=== PATIENT | male | born 1970 | race Caucasian/White ===

== ENCOUNTER 2017-07-26 03:45 | Emergency (ER) | payer SELFPAY ==
[~2017-07-26] VITALS: Ht 188 cm; Wt 95.0 kg
[2017-07-26] MEDS ORDERED: CEFTRIAXONE PMX 1GM/50ML 50 ML IVPB ONE (04:00)
[2017-07-26] MEDS ORDERED: SULFAMETH./TRIMETHOPRIM DS 800MG/160MG TABLET PO ONE (04:00)
[2017-07-26] MEDS ORDERED: SODIUM CHLORIDE FLUSH 10ML SYR IVF ONE (04:00)
[2017-07-26] MEDS ORDERED: PLEASE ENTER ALLERGIES MC SCH ×2 (04:30)
[2017-07-26] MEDS ORDERED: SULFAMETH./TRIMETHOPRIM DS 800MG/160MG TABLET ONE (04:37)
[2017-07-26] MEDS ORDERED: CEFTRIAXONE PMX 1GM/50ML 50 ML ONE (04:37)
[2017-07-26 04:50] LABS: BLOOD UREA NITROGEN 8 mg/dL (7-18)
[2017-07-26 04:52] LABS: HEMATOCRIT 53.8 % (39.2-51.8); HEMOGLOBIN 18.2 g/dL (13.7-18.0); WHITE BLOOD COUNT 7.7 x10^3/uL (3.4-10)
[2017-07-26 06:21] VITALS: BP 112/77
== END 2017-07-26 06:13 | disposition home or self-care (01) ==
LOC: ED 06:00
DX: L03.115 Cellulitis of right lower limb (principal); L03.116 Cellulitis of left lower limb
CPT/HCPCS: 36415; 80048; 82040; 85025; 96365; 99284; J0696

== ENCOUNTER 2017-10-13 17:41 | Emergency (ER) | payer MEDICAID, OTHER ==
[~2017-10-13] VITALS: Ht 188 cm; Wt 87.5 kg
[2017-10-13 17:59] VITALS: BP 94/62
== END 2017-10-13 19:23 | disposition home or self-care (01) ==
LOC: ED 19:17
DX: S60.221A Contusion of right hand, initial encounter (principal); Y04.0XXA Assault by unarmed brawl or fight, initial encounter; Y93.89 Activity, other specified; Y99.8 Other external cause status; Y92.89 Other specified places as the place of occurrence of the external cause
CPT/HCPCS: 99284

== ENCOUNTER 2018-01-16 18:22 | Emergency (ER) | payer MEDICAID ==
[~2018-01-16] VITALS: Ht 188 cm; Wt 87.0 kg
[2018-01-16 18:26] VITALS: BP 100/64
== END 2018-01-16 18:43 | disposition home or self-care (01) ==
LOC: ED 18:37
DX: L03.114 Cellulitis of left upper limb (principal); L03.116 Cellulitis of left lower limb; F10.129 Alcohol abuse with intoxication, unspecified; L40.9 Psoriasis, unspecified
CPT/HCPCS: 99283